=== PATIENT | female | born 1990 | race Caucasian/White ===

== ENCOUNTER 2022-12-25 07:10 | Emergency (ER) | payer OTHER ==
[~2022-12-25] VITALS: Ht 170.2 cm; Wt 122.5 kg
[2022-12-25 07:24] VITALS: BP 151/113; PULSE 95; RESP 18; TEMP 98.3; O2SAT 97
[2022-12-25] MEDS ORDERED: PENI500T20 PO (07:56)
[2022-12-25] MEDS ORDERED: ACET-8905 PO (08:03)
[2022-12-25 08:07] VITALS: BP 146/98; PULSE 91; RESP 18; TEMP 98.3; O2SAT 98
--- NOTE | 2022-12-25 08:10 | NUR ---
Patient discharged with v/s stable. Written and verbal after care instructions given and explained. Patient alert, oriented and verbalized understanding of instructions. Ambulatory with steady gait. All questions addressed prior to discharge. ID band removed. Patient advised to follow up with PMD AND DENTIST. REFERRAL GIVEN FOR [facility]. Rx of PCN AND HYDROCODONE/ACETAMINOPHEN given. Patient educated on indication of medication including possible reaction and side effects. Opportunity to ask questions provided and answered.
[2022-12-25] MEDS ORDERED: TRAM50TA3 PO (11:29)
== END 2022-12-25 08:10 | disposition home or self-care (01) ==
LOC: MED 07:10
DX: K04.7 Periapical abscess without sinus (principal); F41.9 Anxiety disorder, unspecified; F32.9 Major depressive disorder, single episode, unspecified; Z88.5 Allergy status to narcotic agent; Z88.2 Allergy status to sulfonamides; Z79.899 Other long term (current) drug therapy; Z98.890 Other specified postprocedural states
CPT/HCPCS: 99283